=== PATIENT | female | born 1935 | race Caucasian/White ===

== ENCOUNTER 2018-03-05 07:34 | Emergency (ER) | payer MEDICARE, BC ==
[2018-03-05 09:06] LABS: ABNORMAL IP MESSAGE 1; HEMATOCRIT 27.8 % (37.0-47.0); HEMOGLOBIN 8.9 g/dl (12.0-16.0); MEAN CORPUSCULAR HEMOGLOBIN 27.1 pg (29.0-33.0); MEAN CORPUSCULAR VOLUME 84.5 fl (82.0-101.0); MEAN PLATELET VOLUME 13.7 fl (7.4-10.4); NUCLEATED RED BLOOD CELLS% 47.1 /100WBC (0.0-0.0); PLATELET COUNT 853 10^3/UL (140-415); RED BLOOD COUNT 3.29 10^6/ul (4.20-5.40); RED CELL DISTRIBUTION WIDTH 23.2 % (11.5-14.5)
[2018-03-05 09:06] LABS: WHITE BLOOD COUNT 41.5 10^3/ul (4.8-10.8)
[2018-03-05 09:11] LABS: POSITIVE DIFF @See below
[2018-03-05 09:12] LABS: ADD MAN DIFF? YES
[2018-03-05 09:24] LABS: CHLORIDE 100 mmol/L (97-110); POTASSIUM 4.1 mmol/L (3.5-5.1); SODIUM 133 mmol/L (135-144)
[2018-03-05 09:25] LABS: ANION GAP 15 (8-16); BLOOD UREA NITROGEN 17 mg/dl (7-20); CALCIUM 9.1 mg/dl (8.4-10.2); CARBON DIOXIDE 22 mmol/L (21-31); CREATININE 0.64 mg/dl (0.44-1.00); GLUCOSE 133 mg/dl (70-220)
[2018-03-05 09:30] LABS: D-DIMER 1327.99 ng/ml (<460)
[2018-03-05 09:35] LABS: B-TYPE NATRIURETIC PEPTIDE 5480 PG/ML (0-450); TROPONIN-I 0.018 ng/ml (0.000-0.120)
[2018-03-05 09:47] LABS: ANISOCYTOSIS 3+ (0-0); BAND NEUTROPHILS #M 1.2 10^3/ul (0.0-0.6); BAND NEUTROPHILS % (M) 3 % (0-4); BURR CELLS 2+ (0-0); EOSINOPHILS % (M) 1 % (0-7); ERYTHROBLAST% (NRBC) (M) 50 % (0-0); GIANT THROMBO% (M) 24 % (0-0); LYMPHOCYTES #M 2.4 10^3/ul (0.8-2.9); LYMPHOCYTES % (M) 6 % (15-51); MICROCYTOSIS 1+ (0-0); MONOCYTE #M 0.8 10^3/ul (0.3-0.9); MONOCYTES % (M) 2 % (0-11); MYELOCYTES #M 0.8 10^3/ul (0.0-0.0); MYELOCYTES % (M) 2 % (0-0); PLATELET ESTIMATE INCREASED; POIKILOCYTOSIS 3+ (0-0); POLYCHROMASIA 1+ (0-0); PROMYELOCYTES #M 0.4 10^3/ul (0-0); PROMYELOCYTES % (M) 1 % (0-0); RBC MORPHOLOGY COMMENT @See below; REACTIVE LYMPHOCYTES #M 0.4 10^3/ul (0.0-0.0); REACTIVE LYMPHOCYTES% (M) 1 % (0-0); SEG NEUT #M 35.4 10^3/ul (1.6-7.5); SEGMENTED NEUTROPHILS (M) % 84 % (39-77); SMUDGE%M 1 % (0-0); WBC MORPHOLOGY COMMENT @See below
[2018-03-05 09:56] LABS: ALANINE AMINOTRANSFERASE 29 IU/L (13-69); ALBUMIN 2.7 g/dl (3.3-4.9); ALKALINE PHOSPHATASE 212 IU/L (42-121); ASPARTATE AMINO TRANSFERASE 57 IU/L (15-46); BILIRUBIN,INDIRECT 0.3 mg/dl (0-1.1); BILIRUBIN,TOTAL 0.3 mg/dl (0.2-1.3); TOTAL PROTEIN 5.5 g/dl (6.1-8.1)
[2018-03-05] MEDS ORDERED: SODIUM CHLORIDE 0.9% 1L BAG IV* (10:15)
[2018-03-05] MEDS: SOD CHLORIDE 0.9% 100 ML (10:32)
[2018-03-05] MEDS: IODIXANOL LOCM 100 ML BTL (10:33)
[2018-03-05] MEDS: SOD CHLORIDE 0.9% 1,000 ML IV (10:48)
[2018-03-05] MEDS: ACETAMINOPHEN 500 MG TAB PO (10:48)
[2018-03-05 11:59] LABS: LACTIC ACID 0.8 mmol/L (0.5-2.0)
[2018-03-05] MEDS: VANCOMYCIN 1 GM (PMX) 250 ML IVPB (13:30)
[2018-03-05] MEDS: CEFEPIME 1GM/50 ML (PMX) 50 ML IVPB (13:46)
[2018-03-05] MEDS ORDERED: ONDANSETRON 4 MG INJ IV ×2 (14:00→14:30)
[2018-03-05] MEDS ORDERED: ACETAMINOPHEN 325 MG TAB PO ×2 (14:00→14:30)
[2018-03-05] MEDS ORDERED: NACL 0.9% 3 ML SYG IV (14:30)
[2018-03-05] MEDS ORDERED: morphine 2 MG INJ IV (14:30)
[2018-03-05] MEDS ORDERED: VANCOMYCIN IV PER PHARMACY XX (14:30)
[2018-03-05] MEDS ORDERED: VANCOMYCIN 500MG/NS (PMX) 100 ML IVPB (15:30)
[2018-03-05] MEDS ORDERED: FUROSEMIDE 20 MG INJ IV (18:00)
[2018-03-05] MEDS ORDERED: CEFEPIME 2GM/50 ML (PMX) 50 ML IVPB (21:00)
[2018-03-05] MEDS ORDERED: METOPROLOL 50 MG TAB PO (21:00)
[2018-03-05] MEDS ORDERED: oxyCODONE (CR) 15 MG TAB [oxyCONTIN] PO (21:00)
[2018-03-06] MEDS ORDERED: PANTOPRAZOLE (EC) 40 MG TAB PO (07:00)
[2018-03-06] MEDS ORDERED: LEVOTHYROXINE 75 MCG TAB PO (07:00)
[2018-03-06] MEDS ORDERED: AMLODIPINE 10 MG TAB PO (09:00)
[2018-03-06] MEDS ORDERED: CHOLECALCIFEROL 1,000 UNIT TAB PO (09:00)
[2018-03-06] MEDS ORDERED: FERROUS SULFATE (EC) 325 MG TAB PO (09:00)
[2018-03-06] MEDS ORDERED: SERTRALINE 50 MG TAB PO (09:00)
[2018-03-06] MEDS ORDERED: DOCUSATE SODIUM 100 MG CAP PO (09:00)
[2018-03-06] MEDS ORDERED: DULOXETINE 30 MG CAP DR PO (09:00)
[2018-03-06] MEDS ORDERED: FOLIC ACID 1 MG TAB PO (09:00)
[2018-03-06] MEDS ORDERED: ASPIRIN 81 MG TAB PO (09:00)
[2018-03-06] MEDS ORDERED: PYRIDOXINE 50 MG TAB PO (09:00)
== END 2018-03-05 15:50 | disposition left against medical advice (07) ==
LOC: E/R 07:34
DX: A41.9 Sepsis, unspecified organism (principal); R00.0 Tachycardia, unspecified; M54.6 Pain in thoracic spine; T81.30XD Disruption of wound, unspecified, subsequent encounter; D72.829 Elevated white blood cell count, unspecified; D64.9 Anemia, unspecified; D47.3 Essential (hemorrhagic) thrombocythemia; I50.9 Heart failure, unspecified; E88.09 Other disorders of plasma-protein metabolism, not elsewhere classified; R79.1 Abnormal coagulation profile; J90 Pleural effusion, not elsewhere classified; J81.1 Chronic pulmonary edema; D47.9 Neoplasm of uncertain behavior of lymphoid, hematopoietic and related tissue, unspecified; R74.0 Nonspecific elevation of levels of transaminase and lactic acid dehydrogenase [LDH]; I10 Essential (primary) hypertension; E03.9 Hypothyroidism, unspecified; Y73.3 Surgical instruments, materials and gastroenterology and urology devices (including sutures) associated with adverse incidents; Z85.41 Personal history of malignant neoplasm of cervix uteri; Z79.82 Long term (current) use of aspirin; Z85.43 Personal history of malignant neoplasm of ovary
CPT/HCPCS: 36415; 71045; 71275; 74177; 80048; 80076; 83605; 83880; 84484; 85025; 85378; 87040; 93005; 96374; 99291-25